=== PATIENT | female | born 1965 | race Caucasian/White ===

== ENCOUNTER 2021-05-02 18:53 | Inpatient (IN) | payer OTHER ==
[~2021-05-02] VITALS: Ht 172.7 cm; Wt 78.9 kg
[2021-05-02 20:35] VITALS: BP 148/83
[2021-05-03] VITALS (12 sets, daily range): BP systolic 101–133; BP diastolic 57–81
[2021-05-03 00:20] LABS: CHOLESTEROL 174 mg/dL (<200); HDL CHOLESTEROL 57 mg/dL (>40); LDL CHOLESTEROL 93 mg/dL (<100); SERUM ASSESSMENT Clear; TC:HDL 3.1 Ratio (Not establshd); TRIGLYCERIDE 120 mg/dL (<150); VLDL 24 mg/dL (<40)
[2021-05-03 03:37] LABS: HEMATOCRIT 36.6 % (37.0-47.0); HEMOGLOBIN 12.4 gm/dL (12.0-15.0); MCH 32.4 pg (26.0-34.0); MCHC 33.9 g/dL (28.0-37.0); MCV 95.4 fL (80.0-100.0); RBC 3.83 mil/uL (4.20-5.00); RDW 13.6 % (10.5-14.5); WBC 5.7 thou/uL (4.0-11.0)
[2021-05-03 03:48] LABS: CALCIUM 8.4 mg/dL (8.5-10.1); CREATININE 0.7 mg/dL (0.6-1.0); POTASSIUM 4.1 mmol/L (3.5-5.1)
--- NOTE | 2021-05-03 04:36 | NUR ---
ADMITTED THIS PATIENT ON 05/02/21 AROUND 2030H FROM [facility].ON ROOM AIR BREATHING SPONTANEOUSLY.NOT IN DISTRESS.PATIENT IS ON HEPARIN INFUSION AT 10MLS/HR WHICH WAS STARTED AT [facility] AND BOLUS WAS ALSO GIVEN FROM [facility].SEEN BY FORMATION TESTING OPERATOR, PER FORMATION TESTING OPERATOR TO CONTINUE ON HEPARIN DRIP AT RATE RECEIVED FROM [facility].PATIENT WAS HAVING CHEST PAIN NRS 2/10, PER FORMATION TESTING OPERATOR TO GIVE NTG SUBLINGUAL, GIVEN ONE DOSE AND PATIENT'S CHEST PAIN WAS RELIVED AFTER 5 MINUTES. PER FORMATION TESTING OPERATOR TO STILL APPLY THE TOPICAL NTG.ADMSSION COMPLETED.ALL NEEDS ATTENDED.KEPT NPO FROM MIDNIGHT
--- NOTE | 2021-05-03 11:51 | EKG ---
[address] [address] ELECTROCARDIOGRAM REPORT Name: KIRSTEN POST Room #: 214-P ADM IN M.R.#: [id number] Admission: 05/02/21 Attend Phys: Akira Navas MD Discharge: Date of : 61 Report #: [id number] [facility] Test Date: 2021-05-03 Test Time: 08:01:09 Pat Name: KIRSTEN POST Department: Room: 214 P Gender: F Jail Guard: OSWALDO : 1965 Requested By: Renita Roberts Order Number: [id number] MD: Bryan Kenney Measurements Intervals [place] Rate: 71 P: 66 WI: 133 QRS: 57 QRSD: 92 T: 61 QT: 419 QTc: 456 Interpretive Statements Sinus rhythm No previous ECG available for comparison Electronically Signed On 05-03-2021 11:51:38 CDT by Bryan Kenney [email or web address] <ELECTRONICALLY SIGNED> By: Bryan Kenney MD 05/03/21 1151 0801 0801 Bryan Kenney MD /EPI
--- NOTE | 2021-05-03 20:00 | NUR ---
PT IS AXOX4, PLEASANT. VSS, AFEBRILE, SR ON THE MONITOR. RECEIVED PT AT CHANGE OF SHIFT ON HEPARIN GTT AT 10ML/HR. PT HAD CARD CATH THIS AM, WITH NO INTERVENTIONS. R GROIN MYNX DRESSING, C/D/I, NO HEMATOMA. BEDREST COMPLETE. PT C/O HEADACHE PAIN. RX ACETAMINOPHEN GIVEN. DR TRIPATHI, DR ZAPATA CONSULTED POC IS TO CONTINUE TO MONITOR GROIN SITE; POSS D/C 05/04. LOW FALL PRECAUTIONS IN PLACE. NO CONCERNS AT THIS TIME.
[2021-05-04 04:24] LABS: HEMATOCRIT 38.5 % (37.0-47.0); MCH 32.1 pg (26.0-34.0); MCHC 33.7 g/dL (28.0-37.0); MCV 95.4 fL (80.0-100.0); RBC 4.03 mil/uL (4.20-5.00); RDW 13.8 % (10.5-14.5); WBC 4.5 thou/uL (4.0-11.0)
[2021-05-04 04:32] VITALS: BP 133/71
[2021-05-04 04:40] LABS: CALCIUM 8.7 mg/dL (8.5-10.1); CREATININE 0.8 mg/dL (0.6-1.0); POTASSIUM 4.2 mmol/L (3.5-5.1)
--- NOTE | 2021-05-04 04:44 | NUR ---
RECEIEVED THE PATIENT ALERT AND ORIENTED X4.ON ROOM AIR BREATHING SPONTANEOUSLY.WITH POST CARDIAC CATH SITE AT RIGHT GROIN COVERED WITH DRESSING C/D/I.SINUS RYTHM ON THE MONITOR.NO COMPLAINTS OF PAIN.NOT IN DISTRESS.ALL NEEDS ATTENED.FOR POSSIBLE DISCHARGE TODAY.
[2021-05-04 08:00] VITALS: BP 104/66
--- NOTE | 2021-05-04 08:33 | HC ---
[facility] [place] [address] CONSULTATION Name: KIRSTEN POST Room #: 214-P ADM IN M.R.#: [id number] Admission: 05/02/21 Attend Phys: Akira Navas MD Discharge: Date of : 61 Report #: [id number] THIS REPORT FOR: cc: FAM - Family physician unknown FAM - Family physician unknown Bryan Kenney MD ~ CARDIOLOGY CONSULTATION INDICATION: Chest pain. HISTORY OF PRESENT ILLNESS: This is a pleasant 55-year-old female with no significant past medical history, presenting with chest pain. She was transferred from [facility] for non-ST elevation [place]. The patient reports having this substernal discomfort for the past week. She felt as if it was constant, not necessarily related to exertion. However, she had a more severe episode yesterday after working outside on her yard. She then walked up a flight of stairs and became short of breath. She decided to go to the ER at [facility], 2 sets of troponin levels were positive. There is no history of fever, chills, nausea, or diarrhea. She was transferred to [facility] for further evaluation. PAST MEDICAL HISTORY: Denies any history of diabetes or hypertension. ALLERGIES: None. MEDICATIONS: None. SOCIAL HISTORY: Negative for tobacco use. Social alcohol use. FAMILY HISTORY: Negative for premature CAD. REVIEW OF SYSTEMS: A full 10-point review of systems performed. Only the pertinent positives and negatives described in the HPI. PHYSICAL EXAMINATION: VITAL SIGNS: Blood pressure is 120/60, heart rate is 70 beats per minute. GENERAL APPEARANCE: She is a well-developed, well-nourished female in no acute distress. HEENT: Normocephalic, atraumatic. NECK: Supple. LUNGS: Clear to auscultation. CARDIAC: Regular rate and rhythm, S1, S2 positive. ABDOMEN: Soft, nontender. EXTREMITIES: No lower extremity edema, no cyanosis. [facility] [address] [place] [address] CONSULTATION Name: KIRSTEN POST Room #: 214-P ADM IN M.R.#: [id number] Admission: 05/02/21 Attend Phys: Akira Navas MD Discharge: Date of : 61 Report #: [id number] LABORATORY DATA: Peak troponin at [facility] was 90.4, troponin at [facility] is 82. White count is 5.7, hemoglobin is 12.4. Creatinine is 0.7. ECG reveals sinus rhythm, otherwise unremarkable. ASSESSMENT AND PLAN: 1. Non-ST elevation myocardial infarction, 3 sets of high sensitivity troponin levels are positive. Her symptoms are somewhat atypical until yesterday, developing shortness of breath. ECG is unremarkable. I have discussed with the patient the pros and cons of noninvasive stress testing versus cardiac catheterization. The patient is concerned about her presentation and abnormal troponins and wishes to proceed with a coronary angiogram. All questions were answered. 2. Allergies, taking Zyrtec on a p.r.n. basis. 3. Gastrointestinal. If the cardiac evaluation is negative, I suspect a GI workup would be appropriate. <ELECTRONICALLY SIGNED> By: Bryan Kenney MD 05/04/2133 0 3 Bryan Kenney MD /nt
[2021-05-04] MEDS ORDERED: PROTONIX40 M2 PO (10:48)
[2021-05-04 11:02] VITALS: BP 104/66
--- NOTE | 2021-05-04 11:17 | CATHLAB ---
[facility] [place] [address] INVASIVE PROCEDURE REPORT Name: KIRSTNE POST Room #: 214-P ADM IN M.R.#: [id number] Admission: 05/02/21 Attend Phys: Akira Navas MD Discharge: Date of : 61 Report #: [id number] THIS REPORT FOR: cc: FAM - Family physician unknown FAM - Family physician unknown Bryan Kenney MD ~ APPROVED REPORT Study performed: 05/03/2021 10:40:39 Patient Details Patient Status: In-Patient Room #: The patient is a 55 year-old female Event Personnel Bryan Kenney Metalworking Specialist, Nani Guardado RN RN, Jaki Matta Monitor, Jose Loza RT(R)(CV) Scrub Procedures Performed Art Access - R femoral artery* Left Heart Cath w/or w/o Coronaries [id number] [facility] [address]68 Initial Mod Sed Same Phys/QHP Gr5y 868625 90459 Initial Mod Sed Same Phys/QHP 5y 612010 18997 Mod Sed Same Phys/QHP Ea [id number] Hemostasis w/ Mynx Indication Chest pain, The patient presented with chest pain and minimal troponin elevation. Procedure Narrative The Right Groin^ was infiltrated with 1% Lidocaine subcutaneous anesthesia. A PINNACLE 5FR Sheath #[id number] sheath was inserted into the RFA^. Coronary angiography was performed using coronary diagnostic catheters. The right coronary system was accessed and visualized with a jr4 catheter. The left coronary system was accessed and visualized with a jl4 catheter. The left ventricle was accessed and visualized with a str pig catheter. Left ventriculogram was performed in 30 degree projection. There was no hematoma. Intraoperative Conscious Sedation Sedation start time: 1131 Case end Time: 1200 Fentanyl 50 mcg Versed 1 mg [facility] [address] [place] [address] INVASIVE PROCEDURE REPORT Name: KIRSTEN POST Room #: 214-P [facility] IN M.R.#: [id number] Admission: 05/02/21 Attend Phys: Akira Navas MD Discharge: Date of : 61 Report #: [id number] Fluoro Time: 1.56 minutes Dose: DAP 1537.20 cGycm2 173 mGy Contrast Type and Amount: Visipaque 74 ml Coronary Angiography The patient's coronary anatomy is right dominant. Diagnostic Cath Left Main The left main artery is a large-caliber vessel, appears angiographically normal. LAD The LAD is a moderate-sized caliber vessel, traverses the anterior wall and wraps around the apex. This vessel is patent with no flow-limiting lesions. Diagonal 1 This is a small caliber vessel, with no flow-limiting lesions. Diagonal 2 This is a small caliber vessel, with no flow-limiting lesions. Circumflex The left circumflex artery is a moderate-sized caliber vessel, patent with no flow-limiting lesions. OM1 This is a small to moderate-sized caliber vessel, patent with no flow-limiting lesions. OM2 This is a moderate-sized caliber vessel, patent with no flow-limiting lesions. Right Coronary This is a dominant vessel, patent with no flow-limiting lesions. R PDA This is a moderate-sized caliber vessel, patent with no flow-limiting lesions. RPLV This is a small to moderate-sized caliber vessel, patent with no flow-limiting lesions. Left Ventriculography The left ventricle is normal in size with normal contractility. The left ventricular ejection fraction is estimated to be >55%. Hemodynamics The aortic pressure is 140/69 mmHg with a mean of 54 mmHg. The left ventricular pressure is 152/-5 mmHg with a mean of mmHg. The left ventricular end diastolic pressure is 12 mmHg. Conclusion 1. Angiographically normal coronary arteries. [facility] [address] [place] [address] INVASIVE PROCEDURE REPORT Name: KIRSTEN POST Room #: 214-P [facility] IN M.R.#: [id number] Admission: 05/02/21 Attend Phys: Akira Navas MD Discharge: Date of : 61 Report #: [id number] 2. Normal LV systolic function. 3. Recommend risk factor management. <ELECTRONICALLY SIGNED> By: Bryan Kenney MD 05/04/21 1117 1117 1117 Bryan Kenney MD /MARIMAR
== END 2021-05-04 11:11 | disposition home or self-care (01) | DRG 281 ==
LOC: 2N 18:53
PROVIDERS: Internal Medicine Cardiovascular Disease; Nurse Practitioner Family; ADMIT Internal Medicine; ATTEND Internal Medicine
DX: I21.4 Non-ST elevation (NSTEMI) myocardial infarction (principal); D68.69 Other thrombophilia; J30.2 Other seasonal allergic rhinitis; Z79.899 Other long term (current) drug therapy
CPT/HCPCS: 10081